=== PATIENT | male | born 1965 | race African-American/Black ===

== ENCOUNTER 2024-11-19 07:48 | Emergency (ER) | payer OTHER, BC ==
[2024-11-19] MEDS ORDERED: Ketorolac Tromethamine 30 MG (1 mL) VIAL ONE (08:49)
[2024-11-19] MEDS ORDERED: Metoclopramide HCl 10 MG (2 mL) VIAL ONE (08:49)
[2024-11-19 08:55] LABS: #Basophils 0.1 thou/uL (0.0-0.2); #Eosinophils 0.0 thou/uL (0.0-0.7); #Lymphocytes 1.1 thou/uL (1.20-3.40); #Monocytes 1.1 thou/uL (0.11-0.59); #Neutrophils 15.4 thou/uL (1.40-6.50); %Basophils 0.5 % (0.0-1.0); %Eosinophils 0.1 % (0.0-10.0); %Lymphocytes 6.1 % (21.0-51.0); %Monocytes 6.0 % (0.0-10.0); %Neutrophils 87.3 % (42.0-75.0); Hematocrit 38.7 % (42.0-52.0); Hemoglobin 14.0 g/dL (14.0-18.0); Mean Corpuscular Hemoglobin 30.4 pg (27.0-31.0); Mean Corpuscular Volume 84.1 fl (78.0-98.0); Platelet Count 228 10x3/uL (130-400); Red Blood Cell (RBC) Count 4.60 mill/uL (4.70-6.10); White Blood Cell (WBC) Count 17.6 10x3/uL (4.8-10.8)
[2024-11-19 09:08] LABS: ALT (SGPT) 17 U/L (Less than 45); AST (SGOT) 16 U/L (11-34); Albumin 3.3 g/dL (3.1-4.5); Alkaline Phosphatase 87 U/L (40-110); Anion Gap 17 mmol/L (10-20); BUN (Urea Nitrogen) 13 mg/dL (8.4-25.7); Bilirubin, Total 0.6 mg/dL (0.3-1.2); Calc. Creatinine Clearance 0 mL/min (70-130); Calcium 9.2 mg/dL (7.8-10.44); Carbon Dioxide 21 mmol/L (22-29); Chloride 98 mmol/L (98-107); Globulin 3.9 g/dL (2.4-3.5); Glucose 116 mg/dL (70-105); Potassium 4.1 mmol/L (3.5-5.1); Sodium 132 mmol/L (136-145)
[2024-11-19 09:21] LABS: Glucose, Urine (Dipstick) Negative (Negative); Protein, Urine (Dipstick) Negative (Neg-Trace)
[2024-11-19 09:23] LABS: Bacteria/HPF None Seen HPF (None Seen); CAUTI Indications for Culture Dysuria,urgency,freq; Leukocyte Small (Negative); Specific Gravity, Urine 1.015 (1.005-1.030)
[2024-11-19 09:24] LABS: Urine Culture Reflex Yes Yes
[2024-11-19] MEDS ORDERED: cefTRIAXone (ROCEPHIN) 1 GM VIAL ONE (09:28)
[2024-11-19] MEDS ORDERED: diphenhydrAMINE 50 MG/ML VIAL ONE (09:28)
[2024-11-19] MEDS ORDERED: Prochlorperazine 10 MG/2 ML VIAL ONE (09:28)
== END 2024-11-19 11:44 | disposition home or self-care (01) ==
LOC: BURERS 07:48
DX: N30.00 Acute cystitis without hematuria (principal); H66.91 Otitis media, unspecified, right ear; F17.210 Nicotine dependence, cigarettes, uncomplicated
CPT/HCPCS: 36415; 70450; 71045; 74176; 80053; 81001; 83605; 85025; 87040; 87086; 87428; 96361; 96365; 96375; J0696; J0780; J1200; J1885; J2765